=== PATIENT | male | born 1970 | race Caucasian/White ===

== ENCOUNTER 2021-06-04 15:23 | Inpatient (IN) ==
[2021-06-04] MEDS ORDERED: ATIVAN IV ALCOHOL WITHDRAWL IV PRN (15:40)
[2021-06-04] MEDS ORDERED: MULTI-VITAMIN INFUSION 10 ML, THIAMINE HCL 100 MG, FOLIC ACID 1 MG in SODIUM CHLORIDE 0... IV ONE (15:40)
[2021-06-04] MEDS ORDERED: THIAMINE HCL 400 MG in SODIUM CHLORIDE 0.9% 50 ML IV STA (15:40)
[2021-06-04] MEDS ORDERED: LORazepam 2 MG/1 ML VIAL IV PRN ×3 (15:40)
--- NOTE | 2021-06-04 15:53 | Emergency Department Note ---
History of Present Illness General Chief complaint: Confusion Stated complaint: HYPERTENSION, DEHYDRATION, CONFUSION Time Seen by Provider: 06/04/21 15:30 Source: patient and family History of Present Illness -year-old male presents emergency department with shakiness confusion irritabili ty and visual hallucinations that started a few days ago. Patient was recently seen by her primary care physician for a chronic urticaria, was placed on Lexapro, prednisone and Atarax. Patient has been taking these medications for the past 3 to 4 days now. Patient's significant other thought the patient may have had celiac disease so she states that she made him stop drinking a 12 pack of Coors light daily. Patient states today that he saw 3 people with satellites that were trying to janie him. Patient denies suicidal or homicidal ideation. Patient denies drug use. Patient denies headache. Patient states he stopped drinking approximately 5 days ago now. Patient states he has a longstanding history of drinking a 12 pack daily Home Medications Medication Instructions Recorded Confirmed Type amlodipine 10 mg tablet 10 mg PO DAILY 02/27/19 05/18/21 History lisinopril 10 mg tablet 10 mg PO DAILY 02/27/19 05/18/21 History fexofenadine 180 mg tablet 180 mg PO Q24H #30 tab 05/18/21 05/18/21 Rx (Allergy Relief (fexofenadine)) fluticasone propionate 50 1 spray INTRANASAL BID 05/18/21 05/18/21 History mcg/actuation nasal spray,suspension (Flonase Allergy Relief) triamcinolone acetonide 0.1 % 1 applic TOPICAL DAILY PRN #80 g 05/18/21 05/18/21 Rx topical cream Allergies Allergy/AdvReac Type Severity Reaction Status Date / Time Penicillins Allergy Verified 05/18/21 08:24 Sulfa (Sulfonamide Allergy Verified 05/18/21 08:28 Antibiotics) Past Med/Surg History Social History Smoking Status: Never smoker Preferred Language: Bel[place]an Feels Safe at Home: Yes Immunizations: Patient has a history of urticaria, Social -patient consumes a 12 pack daily for at least the past 15 years Review of Systems A total of 10 systems reviewed and were otherwise negative Constitutional: no fever Ear, Nose, Mouth, Throat: no ear pain Cardiovascular: no chest pain Integumentary: + rash and + urticaria Psychiatric: + behavioral changes, + abnormal sleep pattern, + anxiety, + confusion, + paranoia and + visual hallucinations Physical Exam Vital Signs Vital Signs - 24 hr 06/04/21 15:24 06/04/21 15:25 06/04/21 15:28 Temperature 36.8 C Temperature Source Oral Pulse Rate 99 H Respiratory Rate 16 18 Respiratory Effort / Characteristics Non-Labored Respiratory Depth Normal Blood Pressure 161/89 H Blood Pressure Mean 113 Pulse Oximetry 99 97 Oxygen Delivery Method Room Air Room Air Room Air Sepsis Recent Fever Within 48 Hours No Sepsis New/Unexplained Change in Mental Status No Sepsis Action Taken by Nursing No Action Required VITAL SIGNS - Vital signs and nursing notes were reviewed. GENERAL -51-year-old male appearing his stated age who is in no acute distress. Communicates well with provider and answers questions appropriately. SKIN -diffuse urticaria HEAD - NC/AT. EYES - PERRL with EOMI bilaterally. Sclera anicteric. Palpebral conjunctiva pink and moist with no injection noted. EARS - No deformities of external structures noted on gross examination bilaterally. NOSE - Midline and without cyanosis. No epistaxis or purulent drainage noted. Septum midline without deviation or septal hematoma noted. MOUTH/OROPHARYNX - Without perioral cyanosis. Buccal mucosa pink and moist Tongue midline with equal elevation of palate bilaterally. No tonsillar hypertrophy, erythema, or exudates noted. [] dentition noted. NECK - Neck with FROM. Supple to palpation. LUNGS - Chest wall symmetric without accessory muscle use, intercostals retractions, or central cyanosis. Normal vesicular breath sounds CTA B/L. No wheezes, rales, or rhonchi appreciated. CARDIAC - TAchycardic with S1/S2. No murmur, rubs, or gallops appreciated. ABDOMEN - Abdominal contour soft without pulsations or visible masses. BS normoactive all four quadrants. No tenderness, palpable masses, hepatosplenomegaly, or ascites noted. EXTREMITIES - No clubbing or peripheral cyanosis. No pretibial edema present. +5/5 strength noted in UE/LE bilaterally. NEUROLOGIC - Cranial nerves II through XII grossly intact. Alert and oriented, anxious, has a resting tremor in the hands and arms. Patient does relate visual hallucinations to me PSYCH - A&Ox3 and cooperates fully with examiner. Pt is very pleasant and interacts well with examiner. Patient relates that visual hallucinations has a resting tremor Course Administered Medications Multivitamins 10 ml/ Thiamine HCl 100 mg/ Folic Acid 1 mg/Sodium Chloride 1,011.2 mls @ 500 mls/hr IV .Q2H2M ONE Stop: 06/04/21 17:41 Last Admin: 06/04/21 16:22 Dose: 500 mls/hr Documented by: [id number] Discontinued Medications Thiamine HCl 400 mg/ Sodium (Chloride) 54 mls @ 208 mls/hr IV NOW STA Stop: 06/04/21 15:55 Last Admin: 06/04/21 16:23 Dose: 208 mls/hr Documented by: [id number] Medical Decision Making Medical Records Attestation: I reviewed the patient's medical records. Home Medications Current Medication List: was personally reviewed by me Laboratory Data Attestation: I reviewed the patient's lab results. Result diagrams: 06/04/21 15:47 06/04/21 15:47 Lab Results 06/04/21 06/04/21 06/04/21 Range/Units 15:47 15:47 15:47 WBC 4.89 (4.8-10.8) K/uL RBC 3.96 L (4.7-6.1) M/uL Hgb 14.2 (14.0-18.0) g/dL Hct 39.2 L (42-52) % MCV 99.0 (80-100) fL MCH 35.9 H (25-34) pg MCHC 36.2 H (32-36) g/dL RDW Std Deviation 43.5 (36.4-46.3) fL RDW Coeff of [place] 12.0 (11.5-14.5) % Plt Count 189 (130-400) K/uL MPV 9.7 (7.4-10.4) fL Immature Gran % (Auto) 0.4 % Neut % (Auto) 78.1 % Lymph % (Auto) 7.8 % [place] % (Auto) 13.5 % Eos % (Auto) 0.0 % Baso % (Auto) 0.2 % Neut # (Auto) 3.82 (1.4-6.5) K/uL Lymph # (Auto) 0.38 L (1.2-3.4) K/uL [place] # (Auto) 0.66 H (0.11-0.59) K/uL Eos # (Auto) 0.00 (0-0.5) K/uL Baso # (Auto) 0.01 (0-0.2) K/uL Immature Gran # (Auto) 0.02 (0.00-0.02) K/uL PT 10.9 (9.0-12.0) Seconds INR 1.0 (0.9-1.1) APTT 24.1 (21.0-31.0) Seconds PTT Ratio 0.9 Sodium 130 L (136-145) mmol/L Chloride 97 L (98-107) mmol/L Carbon Dioxide 23 (21-32) mmol/L Anion Gap 10 (3-11) BUN 18 (6-23) mg/dl Creatinine 0.71 (0.6-1.4) mg/dl Est Cr Clr Drug Dosing 128.1 ml/min Est GFR ( Amer) 125.0 ml/min Est GFR (Non-Af Amer) 107.9 ml/min BUN/Creatinine Ratio 25.4 H (10-20) Glucose 96 (70-99(Fasting)) mg/dl Calcium 9.7 (8.5-10.1) mg/dl Total Bilirubin 1.7 H (0.2-1.0) mg/dl ALT 183 H (7-52) U/L Alkaline Phosphatase 107 H (34-104) U/L Total Protein 7.7 (6.0-8.3) gm/dl Albumin 4.8 (3.4-5.0) gm/dl Globulin 2.9 (2.5-4.0) gm/dl Albumin/Globulin Ratio 1.7 (0.9-2) Imaging Data Radiologist's Impression: Head CT 06/04/21 15:40 CT head/brain wo con CLINICAL HISTORY: ams COMPARISON STUDY: No previous studies for comparison. CT DOSE: 537.48 mGy.cm TECHNIQUE: Standard CT of the Brain was performed without IV contrast. A dose lowering technique was utilized adhering to the principles of ALARA. FINDINGS: Extraaxial space: There is no evidence for subdural hematoma. There are no extra-axial fluid collections. Ventricles and cisterns: The ventricles are normal in size and configuration. There is no evidence for midline shift or mass effect. Parenchyma: There is no subarachnoid or intraparenchymal hemorrhage. There is no evidence for an acute infarct or cerebral edema. There is homogeneous attenuation of the brain parenchyma. There are no gross mass lesions. Osseous structures: There is no evidence for an acute fracture. The visualized paranasal sinuses are clear. The mastoid air cells are clear bilaterally. Soft tissues: There is no evidence for focal soft tissue swelling. IMPRESSION: 1. No acute intracerebral pathology. ACT 112: Negative or not required by law. Electronically signed by: Teddy Cuenca M.D. 06/04/2021 4:29 PM ECG Data Attestation: I personally reviewed and interpreted this ECG as follows: Additional Comments: EKG interpreted by me normal sinus rhythm rate of 80 normal intervals normal axis no obvious ST segment elevation or depression MDM Narrative Medical decision making differential diagnosis includes alcohol withdrawal, delirium tremens, metabolic derangement, intracranial process, medication reaction; will check labs, CT, start alcohol withdrawal protocol Impression & Plan Alcohol withdrawal delirium Discharge Plan Visit Data Chief Complaint: Confusion Stated Complaint: HYPERTENSION, DEHYDRATION, CONFUSION ED Provider: Sb Hutchinson Discharge Problem: Alcohol withdrawal delirium Patient Disposition: Being Evaluated by Hospitalist Forms Stand Alone Forms: My [facility] Prescriptions Prescriptions: No Action lisinopril 10 mg tablet 10 mg PO DAILY RF: 0 amlodipine 10 mg tablet 10 mg PO DAILY RF: 0 fluticasone propionate [Flonase Allergy Relief] 50 mcg/actuation spray,suspension 1 spray intranasal BID RF: 0 triamcinolone acetonide 0.1 % cream 1 applic topical DAILY PRN (Reason: itch) Qty: 80 RF: 0 fexofenadine [Allergy Relief (fexofenadine)] 180 mg tablet 180 mg PO Q24H Qty: 30 RF: 11 Referrals Referrals: Stephane Echavarria [Primary Care Provider] -
[2021-06-04 16:05] LABS: Basophils # (auto) 0.01 K/uL (0-0.2); Basophils % (auto) 0.2 %; Hematocrit (blood only) 39.2 % (42-52); Hemoglobin 14.2 g/dL (14.0-18.0); Immature Granulocytes # (auto) 0.02 K/uL (0.00-0.02); Immature Granulocytes % (auto) 0.4 %; Lymphocytes # (auto) 0.38 K/uL (1.2-3.4); Lymphocytes % (auto) 7.8 %; Mean Corpuscular Hemoglobin 35.9 pg (25-34); Mean Corpuscular Hgb Conc 36.2 g/dL (32-36); Mean Platelet Volume 9.7 fL (7.4-10.4); Monocytes # (auto) 0.66 K/uL (0.11-0.59); Monocytes % (auto) 13.5 %; Neutrophils # (auto) 3.82 K/uL (1.4-6.5); Neutrophils % (auto) 78.1 %; Platelet Count 189 K/uL (130-400); RDW Standard Deviation 43.5 fL (36.4-46.3); Red Blood Count 3.96 M/uL (4.7-6.1); White Blood Count 4.89 K/uL (4.8-10.8)
[2021-06-04 16:21] LABS: Partial Thromboplastin Ratio 0.9; Partial Thromboplastin Time 24.1 Seconds (21.0-31.0); Prothrombin Time 10.9 Seconds (9.0-12.0)
[2021-06-04 16:27] LABS: Albumin Globulin Ratio 1.7 (0.9-2); Albumin Level 4.8 gm/dl (3.4-5.0); BUN Creatinine Ratio 25.4 (10-20); Bilirubin,Total 1.7 mg/dl (0.2-1.0); Calcium 9.7 mg/dl (8.5-10.1); Creatinine Clr Calc Pharmacy 128.1 ml/min; Est GFR (Non-African American) 107.9 ml/min; Globulin 2.9 gm/dl (2.5-4.0); Total Protein 7.7 gm/dl (6.0-8.3)
--- NOTE | 2021-06-04 16:31 | CT Scan Report ---
CT head/brain wo con CLINICAL HISTORY: ams COMPARISON STUDY: No previous studies for comparison. CT DOSE: 537.48 mGy.cm TECHNIQUE: Standard CT of the Brain was performed without IV contrast. A dose lowering technique was utilized adhering to the principles of ALARA. FINDINGS: Extraaxial space: There is no evidence for subdural hematoma. There are no extra-axial fluid collecti ons. Ventricles and cisterns: The ventricles are normal in size and configuration. There is no evidence fo r midline shift or mass effect. Parenchyma: There is no subarachnoid or intraparenchymal hemorrhage. There is no evidence for an acut e infarct or cerebral edema. There is homogeneous attenuation of the brain parenchyma. There are no g ross mass lesions. Osseous structures: There is no evidence for an acute fracture. The visualized paranasal sinuses are clear. The mastoid air cells are clear bilaterally. Soft tissues: There is no evidence for focal soft tissue swelling. IMPRESSION: 1. No acute intracerebral pathology. ACT 112: Negative or not required by law. Electronically signed by: Teddy Cuenca M.D. 06/04/2021 4:29 PM
--- NOTE | 2021-06-04 16:46 | History & Physical Report ---
Date of Service June 04, 2021 Assessment & Plan (1) Alcohol withdrawal delirium: Plan: -6-12 beers/day for years, recently stopped 5 days ago with 2 glasses of wine yesterday and 1 this afternoon. Has stooped drinking alcohol abruptly in the past, last sober period December-January 2019, no tremors/confusion/agitation/hallucinations on those occasions. Visual/auditory hallucinations at home for the past day, some shakes and agitation. No history of seizures. -Librium taper with prn ativan. -Received banana bag w/ 400 mg IV thiamine in ED. -Continue po folate and thiamine daily. -AST, ALT, t bili elevated. -RUQ, ammonia, B12, folate levels ordered. -MELD 16. -Patient is open to alcohol cessation programs upon discharge, will consult case management to assist in providing patient with resources. (2) Depression: Plan: -Continue lexapro. (3) Hypertension: Plan: -Continue amlodipine 10 mg daily, lisinopril 40 mg daily. (4) Chronic idiopathic urticaria: Plan: -On 06/02 started prednisone taper. Will receive 1 more dose of 50 mg tomorrow, then 40 mg x 4 days, 30 g x 4 days, 20 mg x 4 days, 10 mg x 4 days. -Triamcinolone cream BID to affected area. -Continue hydroxyzine. Plan: -Admit to [facility] telemetry. -SCDs, Lovenox for DVT PPx. -Full code. History of Present Illness Chief Complaint: visual hallucinations x 1 day Primary Care Provider: Stephane Echavarria Mr. Muller is a 51 y/o male with a PMH significant for HTN, alcohol abuse, and chronic idiopathic urticaria who presents today with tremors and visual hallucinations that started yesterday. Patient states he is seeing "oomps" which are people who run around his house, have chased him with satellites, playing music. Also hallucinations of seeing red paint on toilet bowl. His partner, who is at bedside corroborates the story. She states today, he tried to run into a field in their backyard in pursuit of the hallucinations. He became agitated that she cannot see them. He has also been so shaky at home that he cannot put his own glasses on his face. Due to this, his partner urged him to come in for evaluation, suspecting he is dehydrated. Patient has been seen periodically by his PCP and an breeding technician for an ongoing chronic idiopathic urticaria recently placed on Lexapro, prednisone taper, Atarax, and triamcinolone cream. His partner, who is at bedside states she believes he has celiac's disease, as the rash on his arms seems to be better whe n he is not eating gluten. She suggested he stop drinking beer, and instead switch to wine. Last beer was about 5 days ago, however he had 2 glasses of wine last evening and 1 glass this afternoon. Longstanding history of alcohol use, 6-12 beers per day. Denies past medical history of seizures or drug use. He states he has stopped drinking cold turkey on 2 occasions before, typically around the holiday season December - February and has never experienced withdrawal symptoms. Last attempt was December 2018. In ED, he is hypertensive at 161/89, HR 99, otherwise VS wnl, stable. Labs significant for Na 130, t.bili 1.7, ALT 183, AST 151, alk phos 107. UDS pending. CT without evidence of acute intracerebral pathology. Received banana bag with thiamine in ED, as well as 1 mg Ativan. Allergies Allergy/AdvReac Type Severity Reaction Status Date / Time Penicillins Allergy Verified 06/04/21 16:49 Sulfa (Sulfonamide Allergy Verified 06/04/21 16:49 Antibiotics) Home Medications Medication Instructions Recorded Confirmed Type amlodipine 10 mg tablet 10 mg PO DAILY 02/27/19 06/04/21 History fexofenadine 180 mg tablet 180 mg PO Q24H #30 tab 05/18/21 06/04/21 Rx (Allergy Relief (fexofenadine)) triamcinolone acetonide 0.1 % 1 applic TOPICAL DAILY PRN #80 g 05/18/21 06/04/21 Rx topical cream lisinopril 40 mg tablet 40 mg PO DAILY 06/04/21 06/04/21 History prednisone 10 mg tablet 0 mg PO .DAILY/UD 06/04/21 06/04/21 History Past Med/Surg History Social History Smoking Status: Never smoker Second Hand Exposure: No; Do You Dip or Chew Tobacco: No; Tobacco Cessation Education Requested by Patient: No Hx Alcohol Use: Yes Alcohol type: beer and wine Hx Substance Use: No Preferred Language: Divehi Communication Ability: Effective Javascript Application Developer Required: No Beliefs That Will Affect Care: None Current Living Situation: Spouse and Family Current Living Situation Comment: Home with and son Other Information That Helps Us Care for You: No Feels Safe at Home: Yes Safety Concerns: Feels Safe At This Time Assistive Devices: None Review of Systems Review of Systems: Constitutional: No fever/chills, weakness, fatigue, myalgias, anorexia, night sweats Eyes: No diplopia, no worsening or blurred vision ENT: normal hearing, no trouble swallowing Respiratory: No cough, sputum, dyspnea at rest or on exertion Cardiovascular: No chest pain, tightness or palpitations Abdomen: No pain, nausea, vomiting, diarrhea or constipation : Denies dysuria, hematuria, increased urgency/frequency, urinary retention Musculoskeletal: No joint pain, calf pain, swelling Neurologic: No weakness, numbness/tingling, or balance problems Psychiatric: agitation, visual and auditory hallucinations x1 day Skin: No rash or itch Physical Exam Physical Exam: General: awake, alert, oriented; mildly tremulous, no apparent distress Head: Normocephalic, atraumatic ENT: PERRL, EOMI, no pharyngeal exudate, mucous membranes moist Chest: Clear to auscultation, on room air, no adventitious breath sounds Cardiac: Regular rate and rhythm, no murmur, no JVD, normal peripheral pulses, good capillary refill Abdominal: NABS x 4 quadrants, soft, nontender to palpation, no rebound, guarding or tenderness Extremities: Normal inspection, no peripheral edema or erythema, calfs nontender to palpation Psych: Normal mood and affect, fair insight; able to participate in conversation and verbalizes understanding of his current situation regarding alcohol use, the affects it is having on his health, and need for cessation Neuro: AAO x 3, strength intact bilaterally and rated 5/5, no motor deficits, speech is clear, no peripheral sensory deficits Skin: no rash or erythema Results & Data Results & Data ([facility]) Vital Signs (Past 12 Hours) Vital Signs Temp Pulse Resp BP Pulse Ox 06/04/21 15:25 36.8 C 99 H 18 161/89 H 97 06/04/21 15:24 16 99 Laboratory Results Abnormal lab results 06/04/21 06/04/21 Range/Units 15:47 15:47 RBC 3.96 L (4.7-6.1) M/uL Hct 39.2 L (42-52) % MCH 35.9 H (25-34) pg MCHC 36.2 H (32-36) g/dL Lymph # (Auto) 0.38 L (1.2-3.4) K/uL [place] # (Auto) 0.66 H (0.11-0.59) K/uL Sodium 130 L (136-145) mmol/L Chloride 97 L (98-107) mmol/L BUN/Creatinine Ratio 25.4 H (10-20) Total Bilirubin 1.7 H (0.2-1.0) mg/dl AST 151 H (13-39) U/L ALT 183 H (7-52) U/L Alkaline Phosphatase 107 H (34-104) U/L Diagnostic Findings Head CT 06/04/21 15:40 CT head/brain wo con CLINICAL HISTORY: ams COMPARISON STUDY: No previous studies for comparison. CT DOSE: 537.48 mGy.cm TECHNIQUE: Standard CT of the Brain was performed without IV contrast. A dose lowering technique was utilized adhering to the principles of ALARA. FINDINGS: Extraaxial space: There is no evidence for subdural hematoma. There are no extra-axial fluid collections. Ventricles and cisterns: The ventricles are normal in size and configuration. There is no evidence for midline shift or mass effect. Parenchyma: There is no subarachnoid or intraparenchymal hemorrhage. There is no evidence for an acute infarct or cerebral edema. There is homogeneous attenuation of the brain parenchyma. There are no gross mass lesions. Osseous structures: There is no evidence for an acute fracture. The visualized paranasal sinuses are clear. The mastoid air cells are clear bilaterally. Soft tissues: There is no evidence for focal soft tissue swelling. IMPRESSION: 1. No acute intracerebral pathology. ACT 112: Negative or not required by law. Electronically signed by: Teddy Cuenca M.D. 06/04/2021 4:29 PM Medications Administered Multivitamins 10 ml/ Thiamine HCl 100 mg/ Folic Acid 1 mg/Sodium Chloride 1,011.2 mls @ 500 mls/hr IV .Q2H2M ONE Stop: 06/04/21 17:41 Last Admin: 06/04/21 16:22 Dose: 500 mls/hr Documented by: [id number] Lorazepam (Lorazepam 2 Mg/1 Ml Vial) 1 mg IV UD PRN; Protocol PRN Reason: EtOH Withdrawl AWSS Score 6,7 Stop: 07/04/21 15:39 Last Admin: 06/04/21 16:47 Dose: 1 mg Documented by: [id number] ECG Additional Comments: Normal sinus rhythm Normal ECG When compared with ECG of 03-AUG-2009 18:04, No significant change was found. Per my interpretation, NSR without ST segment or T wave changes. Code Status & VTE Plan Code Status Full Code. Supervising Physician Co-Signing Physician Notes 2 glasses of wine last night, 1 glass the day before. Prior coors light 12 per night. No personal or family hx of seizures. Last period of sobriety was pre- COVID, had no withdrawal at that time. Patient seen and examined, chart reviewed, case discussed with Liz Barrett PA-C and I agree with the assessment and plan as above except as otherwise noted. Patient is a 51-year-old male with a history of alcohol abuse and prior use of usually around 12 beers per night for many months. Last alcohol free. Was pre-Covid, did not have withdrawal symptoms at that time and quit cold turkey for several months. Patient abruptly stopped his alcohol intake 5 days ago, did not have any alcohol for 2 days, then had 1 glass of wine on day 4 and 2 glasses of wine yesterday evening as his last alcohol intake. He did develop rapidly worsening tremors, confusion, and did have some hallucinations of satellites and people watching him from across the field which prompted his to bring him to the ER for additional care. He does not have any history of seizures. He is interesting in limiting alcohol intake, especially with the knowledge that his liver enzymes are increased. Mild transaminitis, liver ultrasound pending, ammonia pending. Will be admitted on Librium protocol and AWSS, thiamine, folic acid supplementation. At time of bedside assessment is alert and oriented to name, place, month, and day. Tremulous without asterixis. Not responding to internal stimuli. Earlier today did endorse visual hallucinations regarding people in satellites, and auditory hallucinations of music in his head that would come and go. Management as above, will continue to follow. Patient agreeable to alcohol cessation resources for discharge connection, case management will be consulted PG Care Time/CCT Total # of Minutes Spent Total Time Spent with Patient: Total time spent is greater than 50% in coordination of care (as documented) at patient's floor/unit and/or counseling patient: Coding Level of Care Code 36650 Initial Inpt Care Lvl 3 Diagnoses Alcohol withdrawal delirium F10.231 Chronic idiopathic urticaria L50.1 Depression F32.A Hypertension I10
[2021-06-04 16:50] LABS: Potassium 4.3 mmol/L (3.5-5.1)
[2021-06-04 17:19] LABS: Amphetamines+Metham, Urine Neg (Neg); Barbiturates, Urine Neg (Neg); Benzodiazepine, Urine Neg (Neg); Cocaine, Urine Neg (Neg); MDMA (Ecstacy), Urine Neg (Neg); Methadone, Urine Neg (Neg); Opiate, Urine Neg (Neg); Phencyclidine, Urine Neg (Neg)
[2021-06-04] MEDS ORDERED: chlordiazePOXIDE ALCOHOL WITHDRAWL 50MG PO STA (18:28)
[2021-06-04] MEDS ORDERED: POLYETHYLENE (MIRALAX) 17 GM PACK PO PRN (20:07)
[2021-06-04] MEDS ORDERED: LORazepam 1 MG TAB PO PRN (20:07)
[2021-06-04] MEDS ORDERED: TRIAMCINOLONE ACET 0.1% CR 15 GM TUBE TOP PRN (20:07)
[2021-06-04] MEDS ORDERED: ONDANSETRON INJ 2 MG/ML 2 ML VIAL IV PRN (20:07)
[2021-06-04] MEDS ORDERED: ACETAMINOPHEN 325 MG TAB PO PRN (20:07)
[2021-06-04] MEDS: chlordiazePOXIDE HCl 25 MG CAP PO SCH (21:33)
[2021-06-04] MEDS: ENOXAPARIN INJ 40 MG/0.4 ML SYR SQ SCH (21:35)
[2021-06-04] MEDS: LACTATED RINGER'S 1,000 ML IV SCH (21:36)
[2021-06-05] MEDS: MELATONIN 3 MG TAB PO PRN ×2 (01:39→22:24)
[2021-06-05] MEDS: chlordiazePOXIDE HCl 25 MG CAP PO SCH ×4 (02:50→20:53)
[2021-06-05 06:55] LABS: Basophils # (auto) 0.02 K/uL (0-0.2); Basophils % (auto) 0.5 %; Eosinophils # (auto) 0.08 K/uL (0-0.5); Eosinophils % (auto) 1.9 %; Hematocrit (blood only) 36.7 % (42-52); Hemoglobin 13.1 g/dL (14.0-18.0); Immature Granulocytes # (auto) 0.03 K/uL (0.00-0.02); Immature Granulocytes % (auto) 0.7 %; Lymphocytes # (auto) 1.19 K/uL (1.2-3.4); Lymphocytes % (auto) 27.6 %; Mean Corpuscular Hemoglobin 35.5 pg (25-34); Mean Corpuscular Hgb Conc 35.7 g/dL (32-36); Mean Corpuscular Volume 99.5 fL (80-100); Mean Platelet Volume 10.2 fL (7.4-10.4); Monocytes # (auto) 1.02 K/uL (0.11-0.59); Monocytes % (auto) 23.7 %; Neutrophils # (auto) 1.97 K/uL (1.4-6.5); Neutrophils % (auto) 45.6 %; Platelet Count 161 K/uL (130-400); RDW Coefficient of Variation 12.1 % (11.5-14.5); RDW Standard Deviation 43.9 fL (36.4-46.3); Red Blood Count 3.69 M/uL (4.7-6.1); White Blood Count 4.31 K/uL (4.8-10.8)
[2021-06-05 07:25] LABS: Albumin Globulin Ratio 1.8 (0.9-2); Albumin Level 4.2 gm/dl (3.4-5.0); Bilirubin,Total 1.6 mg/dl (0.2-1.0); Calcium 8.9 mg/dl (8.5-10.1); Creatinine Clr Calc Pharmacy 148.7 ml/min; Est GFR (African American) 133.1 ml/min; Est GFR (Non-African American) 114.8 ml/min; Globulin 2.4 gm/dl (2.5-4.0); Magnesium 2.1 mg/dl (1.7-2.4); Phosphorus 3.3 mg/dl (2.5-4.9); Potassium 3.3 mmol/L (3.5-5.1); Total Protein 6.6 gm/dl (6.0-8.3)
--- NOTE | 2021-06-05 07:31 | Electrocardiogram Report ---
Test Reason : Blood Pressure : / mmHG Vent. Rate : 080 BPM Atrial Rate : 080 BPM P-R Int : 154 ms QRS Dur : 096 ms QT Int : 370 ms P-R-T Axes : 054 056 058 degrees QTc Int : 426 ms Normal sinus rhythm Normal ECG When compared with ECG of 03-AUG-2009 18:04, No significant change was found Confirmed by Elias Leyva ([id number]) on 06/05/2021 7:31:19 AM Referred By: REFERRED SELF Confirmed By:Jerald Leyva
--- NOTE | 2021-06-05 07:33 | Ultrasound Report ---
US liver CLINICAL HISTORY: elevated LFTs. COMPARISON: None. TECHNIQUE: Multiple grayscale and color images of the right upper quadrant of the abdomen. FINDINGS: Pancreas: The pancreas is within normal limits with no focal mass or peripancreatic fluid collection identified. Liver: There is diffuse increased echogenicity of the liver characteristic of fatty infiltration. The re is no evidence for a focal mass. There is no intrahepatic biliary duct dilatation. Gallbladder: The gallbladder is well distended with no evidence of cholelithiasis, wall thickening or pericholecystic edema. Common Bile Duct: (CBD): It is normal in size measuring 4 mm. Inferior Vena Cava (IVC): The imaged IVC is patent. Right kidney: There is no evidence for hydronephrosis, calculus or gross renal mass. The kidney is no rmal in size. IMPRESSION: 1. Diffuse fatty infiltration of the liver. ACT 112: Negative or not required by law. Electronically signed by: Teddy Cuenca M.D. 06/05/2021 7:32 AM
[2021-06-05 07:53] LABS: Folate (Folic Acid) 19.77 ng/ml (>5.38)
[2021-06-05] MEDS ORDERED: POTASSIUM CHLORIDE CRTAB 20 MEQ TABCR PO STA (08:10)
[2021-06-05] MEDS: lisinopril 40 MG TAB PO SCH (08:25)
[2021-06-05] MEDS: amLODIPine BESYLATE 5 MG TAB PO SCH (08:25)
[2021-06-05] MEDS: FEXOFENADINE HCL 180 MG TAB PO SCH (08:25)
[2021-06-05] MEDS: FOLIC ACID 1 MG TAB PO SCH (08:25)
[2021-06-05] MEDS: THIAMINE HCL 100 MG TAB PO SCH (08:25)
[2021-06-05] MEDS: LACTATED RINGER'S 1,000 ML IV SCH (08:27)
[2021-06-05] MEDS ORDERED: predniSONE 50 MG TAB PO ONE (09:00)
[2021-06-05] MEDS ORDERED: cloNIDine HCL 0.1 MG TAB PO ONE (12:57)
--- NOTE | 2021-06-05 13:03 | Hospitalist Progress Note ---
Date of Service June 05, 2021 Assessment & Plan (1) Alcohol withdrawal delirium: Plan: -6-12 beers/day for years, recently stopped 5 days ago with 2 glasses of wine yesterday and 1 this afternoon. Has stooped drinking alcohol abruptly in the past, last sober period December-January 2019, no tremors/confusion/agitation/hallucinations on those occasions. Visual/auditory hallucinations at home for the past day, some shakes and agitation. No history of seizures. -Librium taper with prn ativan. -Received banana bag w/ 400 mg IV thiamine in ED. -Continue po folate and thiamine daily. -AST, ALT, t bili elevated. Downtrending 06/05 -Liver ultrasound: Fatty liver change, no appearance of overt cirrhosis. No biliary ductal dilation -MELD 16. -Patient is open to alcohol cessation programs upon discharge, will consult case management to assist in providing patient with resources. Patient feels he is improving, cognitively intact at morning assessment, still with an episode of hallucination overnight, still with obvious symptoms of withdrawal. Continue inpatient management with Librium taper, AWSS for breakthrough. (2) Depression: Plan: -Continue lexapro. (3) Hypertension: Plan: -Continue amlodipine 10 mg daily, lisinopril 40 mg daily. (4) Chronic idiopathic urticaria: Plan: -On 06/02 started prednisone taper. Will receive 1 more dose of 50 mg tomorrow, then 40 mg x 4 days, 30 g x 4 days, 20 mg x 4 days, 10 mg x 4 days. -Triamcinolone cream BID to affected area. -Continue fexofenadine Plan: -Admit to [facility] telemetry. -SCDs, Lovenox for DVT PPx. -Full code. Admission and Anticipated Discharge Date Admission Date: June 04, 2021 Radha Del Valle is seen at the bedside this morning. At time of visit he is not acutely hallucinating, does report that he had some visual hallucinations last night. Reports that the vitals machine looks like a box with a head coming out of it which he recognized as a strange, since this has not had any further hallucinations. Denies auditory hallucinations. Continues to be tremulous, feels this has improved slightly. Is fatigued, denies palpitations. Denies lightheadedness, dizziness, chest pain, chest pressure, syncope, presyncope. No abdominal pain. Does feel slightly sweaty. Review of Systems Review of Systems: All systems reviewed & are unremarkable except as noted in Subjective Physical Exam Physical Exam: General: A&Ox3. Skin is warm, moist. No acute distress. HEENT: Atraumatic, normocephalic. Visual acuity and hearing grossly intact. Not responding to internal stimuli. Pulm: CTAB A&P. -wheezes, -rales, -rhonchi. Symmetrical chest rise. No increase in work of breathing. No respiratory distress. Cardiac: RRR, -mrg. Radial pulses intact and symmetrical. Abdominal: Nontender, nondistended, soft. BS present. Extremities: Warm, moist. On extension patient does have a bilateral hand tremor similar/slightly improved from prior, no asterixis. Manufacturing Accountant strength, hip flexion, ankle dorsiflexion/plantarflexion intact with symmetrical strength. Sensation soft touch intact in hands and feet. Results & Data Results & Data ([facility]) Vital Signs (Past 12 Hours) Vital Signs Temp Pulse Pulse Resp BP Pulse Ox 06/05/21 11:48 37.1 C 64 18 179/98 H 97 06/05/21 08:21 36.8 C 64 18 137/91 96 06/05/21 07:16 56 L 06/05/21 03:01 36.7 C 63 20 160/88 H 96 PG Care Time/CCT Total # of Minutes Spent Total Time Spent with Patient: Total time spent is greater than 50% in coordination of care (as documented) at patient's floor/unit and/or counseling patient: Coding Level of Care Code 85018 Subseq Hosp Care Lvl 2 Diagnoses Alcohol withdrawal delirium F10.231 Depression F32.A Hypertension I10 Chronic idiopathic urticaria L50.1
[2021-06-05] MEDS: ENOXAPARIN INJ 40 MG/0.4 ML SYR SQ SCH (20:54)
[2021-06-06] MEDS: chlordiazePOXIDE HCl 25 MG CAP PO SCH ×2 (04:17→12:59)
[2021-06-06] MEDS: THIAMINE HCL 100 MG TAB PO SCH (08:29)
[2021-06-06] MEDS: amLODIPine BESYLATE 5 MG TAB PO SCH (08:29)
[2021-06-06] MEDS: lisinopril 40 MG TAB PO SCH (08:29)
[2021-06-06] MEDS: FOLIC ACID 1 MG TAB PO SCH (08:29)
[2021-06-06] MEDS: FEXOFENADINE HCL 180 MG TAB PO SCH (08:30)
[2021-06-06] MEDS ORDERED: predniSONE 20 MG TAB PO SCH (09:00)
--- NOTE | 2021-06-06 13:05 | Discharge Summary ---
Date of Service June 06, 2021 Admission HPI Per Admitting Provider Mr. Muller is a 51 y/o male with a PMH significant for HTN, alcohol abuse, and chronic idiopathic urticaria who presents today with tremors and visual hallucinations that started yesterday. Patient states he is seeing "oomps" which are people who run around his house, have chased him with satellites, playing music. Also hallucinations of seeing red paint on toilet bowl. His partner, who is at bedside corroborates the story. She states today, he tried to run into a field in their backyard in pursuit of the hallucinations. He became agitated that she cannot see them. He has also been so shaky at home that he cannot put his own glasses on his face. Due to this, his partner urged him to come in for evaluation, suspecting he is dehydrated. Patient has been seen periodically by his PCP and an residential property manager for an ongoing chronic idiopathic urticaria recently placed on Lexapro, prednisone taper, Atarax, and triamcinolone cream. His partner, who is at bedside states she believes he has celiac's disease, as the rash on his arms seems to be better when he is not eating gluten. She suggested he stop drinking beer, and instead switch to wine. Last beer was about 5 days ago, however he had 2 glasses of wine last evening and 1 glass this afternoon. Longstanding history of alcohol use, 6-12 beers per day. Denies past medical history of seizures or drug use. He states he has stopped drinking cold turkey on 2 occasions before, typically around the holiday season December - February and has never experienced withdrawal symptoms. Last attempt was December 2018. In ED, he is hypertensive at 161/89, HR 99, otherwise VS wnl, stable. Labs significant for Na 130, t.bili 1.7, ALT 183, AST 151, alk phos 107. UDS pending. CT without evidence of acute intracerebral pathology. Received banana bag with thiamine in ED, as well as 1 mg Ativan. Principal Diagnosis Alcohol withdrawal with mild delirium tremens Discharge Exam General: A&Ox3. Skin is warm, dry. No acute distress. HEENT: Atraumatic, normocephalic. Visual acuity and hearing grossly intact. Not responding to internal stimuli. Pulm: CTAB A&P. -wheezes, -rales, -rhonchi. Symmetrical chest rise. No increase in work of breathing. No respiratory distress. Cardiac: RRR, -mrg. Radial pulses intact and symmetrical. Abdominal: Nontender, nondistended, soft. BS present. Extremities: Skin warm and dry, minimal bilateral extension tremor in the hand greatly improved. No asterixis Medication Reconciliation Technician strength, hip flexion, ankle dorsiflexion/plantarflexion intact with symmetrical strength. Sensation soft touch intact in hands and feet. Discharge Data Allergies Allergy/AdvReac Type Severity Reaction Status Date / Time Penicillins Allergy Verified 06/04/21 16:49 Sulfa (Sulfonamide Allergy Verified 06/04/21 16:49 Antibiotics) Consultations 06/04/21 17:18 ED Decision to Admit Stat Ordered Studies 06/04/21 15:40 CT head/brain wo con Stat 06/04/21 20:07 US liver Routine Hospital Course (1) Alcohol withdrawal delirium: Eligio is a 51-year-old male who presented approximately 4-5 days after rapidly decreasing his alcohol intake who experienced tremors, sweats, and hallucinations consistent with mild delirium tremens. He had no seizure history. He did not experience any seizures during admission. He was treated with a Librium withdrawal protocol and breakthrough RYAN S Ativan as needed. Did not require additional Ativan in 24 hours prior to discharge. Hallucinations did not recur within 24 hours of discharge, tremors greatly improved. Support resources including [facility] were discussed and provided to patient. Given comorbid anxiety patient was recommended to follow-up with [place], to which she was agreeable and reported was calling day of discharge. Case was discussed with his family, it was recommended that all alcohol be removed from the house prior to patient returning home. He was discharged on a Librium taper as below. To do as outpatient: 1. Complete Librium taper as below. Patient counseled that this is a benzodiazepine medication which can cause respiratory suppression and sedation. Was counseled that he cannot drive while on this medication, and absolutely cannot drink while in the medication as it can cause respiratory suppression or . Agreeable to this 2. Follow-up with [facility]/alcohol sobriety resources. Patient agreeable and [facility]. 3. Follow-up to PCP within 1 week. Recommend CMP recheck to follow liver function. Liver ultrasound as below 4. Continue thiamine/folic acid supplementation Alcohol abuse with withdrawal symptoms -6-12 beers/day for years, recently stopped 5 days ago with 2 glasses of wine yesterday and 1 this afternoon. Has stooped drinking alcohol abruptly in the past, last sober period December-January 2019, no tremors/confusion/agitation/hallucinations on those occasions. Visual/auditory hallucinations at home for the past day, some shakes and agitation. No history of seizures. On reevaluation prior to discharge patient does admit that he actually drinks over 20 drinks per day, no more than 30 -Librium taper with prn ativan. -Received banana bag w/ 400 mg IV thiamine in ED. -Continue po folate and thiamine daily. -AST, ALT, t bili elevated. Downtrending 06/05 and 06/06 -Liver ultrasound: Fatty liver change, no appearance of overt cirrhosis. No biliary ductal dilation -MELD 16. -Patient is open to alcohol cessation programs upon discharge, will consult case management to assist in providing patient with resources. (2) Depression: -Continue lexapro. (3) Hypertension: -Continue amlodipine 10 mg daily, lisinopril 40 mg daily. (4) Chronic idiopathic urticaria: -On 06/02 started prednisone taper. Will receive 1 more dose of 50 mg tomorrow, then 40 mg x 4 days, 30 g x 4 days, 20 mg x 4 days, 10 mg x 4 days. -Triamcinolone cream BID to affected area. -Continue fexofenadine -Admit to [facility] telemetry. -SCDs, Lovenox for DVT PPx. -Full code. Total Time Total Time Spent Total Time Spent (In Minutes): Time spend day of discharge 60 minutes including direct patient care with alcohol cessation counseling, documentation, review of labs and images, and coordination of care. Discharge Plan Discharge Items Patient Disposition: Home - Self-Care Reason For Visit: ALCOHOL WITHDRAWAL Discharge Diagnosis: Acute alcohol withdrawal with delirium tremens Activity: Per Instructions section Non-emergency contact: Primary Care Provider Call non-emergency contact if: you have any medication questions, your symptoms worsen and you have a fever Follow-up/Referrals: Stephane Echavarria [Primary Care Provider] - 06/14/21 2:45 pm Diet: Regular and Other - See Diet Comment Diet Comment: Alcohol free Addtl Attending Provider Instructions: You are seen in the hospital for acute alcohol withdrawal with hallucinations concerning for delirium tremens. You are placed on a Librium taper, and gradually clinically improved. Your liver enzymes were elevated on admission, these were not yet normal but began to decrease by time of discharge. An ultrasound of your liver showed diffuse fatty infiltration of the liver without focal masses or evidence of biliary/gallbladder ductal dilation. A head CT performed on admission did not show any acute abnormalities. You were clinically improved and near baseline health the time of discharge, have been discharged to follow-up with your PCP. You have been provided with alcohol cessation resources. Your blood work suggested acute liver damage and your liver ultrasound did show fatty infiltration of the liver most likely due to alcohol. Continued alcohol use will continue to damage to liver, and worsening function and eventually the liver can progress to cirrhosis which is irreversible scarring/fibrosis and liver failure. It is critically important to remain abstinent from alcohol. Please continue follow-up with the resources provided to you, and is encouraged to both you and your to remove alcohol from your home prior to returning home. You have been provided a Librium taper as below. This is a sedating medication can affect breathing do not drive or drink while on this medication. You have been provided a Librium (chlordiazepoxide) taper. 06/06: Take 50 mg chlordiazepoxide with lunch and in the evening 06/07-06/08: Take 10 mg of chlordiazepoxide in the morning and evening 06/09: Take 10 mg of chlordiazepoxide in the morning 06/10: No additional doses of chlordiazepoxide You should see your primary care physician for a follow-up visit within 2 weeks. You should have blood work (a CMP to recheck liver enzymes) at that visit. Your blood pressure was slightly high during admission. Please have your blood pressure rechecked at your follow-up appointment, and discuss hypertensive medication adjustments if needed at that time. If you develop worsening heada cee, vision changes lightheadedness, dizziness, nausea/vomiting or other new or concerning symptoms please contact your PCP or call 911 for reevaluation in the emergency department if you are concerned. If you develop any new or worsening symptoms including fever, chills, sweats, chest pain, chest pressure, difficulty breathing, uncontrolled nausea/vomiting, rash, wheezing, passing out or nearly passing out, bleeding, black/bloody bowel movements, or other new or concerning symptoms please call your primary care physician, or call 911 for re-evaluation in the emergency department if you are very concerned. Pending Studies at Discharge: No Stand-Alone Forms: My [facility], Smoking Cessation Medications and DC Order Prescriptions: New chlordiazepoxide HCl 10 mg capsule See Rx Instructions .ROUTE .COMPLEX Qty: 10 RF: 0 Continued amlodipine 10 mg tablet 10 mg PO DAILY RF: 0 triamcinolone acetonide 0.1 % cream 1 applic topical DAILY PRN (Reason: itch) Qty: 80 RF: 0 fexofenadine [Allergy Relief (fexofenadine)] 180 mg tablet 180 mg PO Q24H Qty: 30 RF: 11 lisinopril 40 mg tablet 40 mg PO DAILY RF: 0 prednisone 10 mg tablet 0 mg PO .DAILY/UD RF: 0 Discharge Orders: Discharge Order (Routine); Ordered 06/06/21 Ordered By: Rc Wyman Admission Data Admit Date/Time: 06/04/21 18:24 Attending Provider: Rc Wyman Admit Provider: Rc Wyman Primary Care Provider: Stephane Echavarria Other Providers: Rc Wyman Other Interventions: Discharge Summary Assessment (RN) Last Done: 06/06/21 10:30 Coding Level of Care Code D/C DAY MANAGEMENT >30 MINS Diagnoses Alcohol withdrawal delirium F10.231 Depression F32.A Hypertension I10 Chronic idiopathic urticaria L50.1
[2021-06-09] MEDS ORDERED: predniSONE 10 MG TABLET PO SCH (09:00)
[2021-06-10] MEDS ORDERED: predniSONE 10 MG TABLET PO SCH (09:00)
[2021-06-14] MEDS ORDERED: predniSONE 20 MG TAB PO SCH (09:00)
[2021-06-18] MEDS ORDERED: predniSONE 10 MG TABLET PO SCH (09:00)
== END 2021-06-06 13:20 | disposition home or self-care (01) | DRG 897 ==
LOC: ED 15:23 → 2N 18:24